=== PATIENT | male | born 1955 | race Caucasian/White ===

== ENCOUNTER → 2023-03-15 | Outpatient (CLI) | payer MEDICARE, BC, SELFPAY ==
[2023-03-15 16:56] LABS: PSA,Total - Annual Screen 4.14 ng/mL (0.00-4.00)
== END | disposition home or self-care (01) ==
PROVIDERS: PCP Family Medicine; Referring Provider Nurse Practitioner; Visit Provider Nurse Practitioner
DX: Z12.5 Encounter for screening for malignant neoplasm of prostate (principal)
CPT/HCPCS: 36415; 84153; G0103

== ENCOUNTER → 2023-09-06 | Outpatient (CLI) | payer MEDICARE, BC, SELFPAY ==
--- OUTSIDE RECORDS SUMMARY | 2023-09-06 10:03 | XMS RPT_ITS | CCD ---
Author Name Unknown Address [address] [facility] [address] [place] [address] Organization [facility] Care Team Providers Care Harp Maker Name Role Phone Shira Wade MD Primary Care Provider Shira Wade MD Unavailable KAMRYN WHITNEY Attending Unavailable CARMEN, SHIRA L Primary Care Unavailable CARMEN, SHIRA L Attending Unavailable CARMEN, SHIRA L Referring Unavailable CARMEN, SHIRA L Primary Care Unavailable CARMEN, SHIRA L Attending Unavailable CARMEN, SHIRA L Primary Care Unavailable CARMEN, SHIRA L Attending Unavailable CARMEN, SHIRA L Primary Care Unavailable ROBBY CARLOS Attending Unavailable CARMEN, SHIRA L Primary Care Unavailable CARMEN, SHIRA L Attending Unavailable CARMEN, SHIRA L Primary Care Unavailable CARMEN, SHIRA L Attending Unavailable CARMEN, SHIRA L Primary Care Unavailable CARMEN, SHIRA L Attending Unavailable CARMEN, SHIRA L Primary Care Unavailable Allergies Allergy Classification Reported Allergen(s) Allergy Type Date of Onset Reaction(s) Facility (8 sources) Losartan; Translations: [LOSARTAN] Drug Allergy 5 Dizziness, Headache [facility] (8 sources) Penicillins; Translations: [PENICILLINS] Propensity to adverse reactions 5 Hives, Rash [facility] Work Phone: Medications Current Medications Medication Drug Class(es) Dates Sig (Normalized) Sig (Original) celecoxib 100 mg oral capsule (5 sources) Nonsteroidal Anti-inflammatory Drug Start: 12-01-2022 take 1 capsule by mouth once daily celecoxib (CeleBREX) 100 mg capsule Take 1 capsule (100 mg) by mouth once daily. 0 12/01/2022 Active Completed/Discontinued Medications Medication Drug Class(es) Dates Sig (Normalized) Sig (Original) hydrOXYzine pamoate 25 mg oral capsule (3 sources) Antihistamine Start: 04-15-2023 End: 06-17-2023 take 1 capsule by mouth three times daily as needed for anxiety hydrOXYzine pamoate (VistariL) 25 mg capsule Indications: RUY (generalized anxiety disorder) Take 1 capsule (25 mg) by mouth 3 times a day as needed for itching or anxiety. 30 capsule 1 04/15/2023 06/17/2023 Discontinued (Med List Cleanup) 1 ml LORazepam 2 mg/ml injection (2 sources) Benzodiazepine Start: 06-03-2023 End: 06-03-2023 LORazepam (Ativan) injection 1 mg Problems Active Problems Problem Classification Problem Date Documented Date Episodic/Chronic Anxiety disorders (16 sources) Generalized anxiety disorder; Translations: [Generalized anxiety disorder] Onset: 0 10-13-2022 Chronic E Codes: Adverse effects of medical drugs (2 sources) Adverse effect of antihyperlipidemic and antiarteriosclerotic drugs, initial encounter; Translations: [Adverse effect of antihyperlipidemic and antiarteriosclerotic drugs, initial encounter] Onset: 4 Episodic Esophageal disorders (7 sources) Gastroesophageal reflux disease without esophagitis; Translations: [Gastro-esophageal reflux disease without esophagitis] Onset: 3 10-13-2022 Chronic Essential hypertension (14 sources) Essential hypertension; Translations: [Essential (primary) hypertension] Onset: 3 10-13-2022 Chronic Gout and other crystal arthropathies (7 sources) Gouty arthritis of left ankle; Translations: [Gout, unspecified] Onset: 8 04-15-2023 Chronic Other connective tissue disease (1 source) History of total knee arthroplasty; Translations: [Presence of right artificial knee joint] Onset: 1 06-17-2023 Chronic Other nervous system disorders (2 sources) Drug-induced myopathy; Translations: [Drug-induced myopathy] Onset: 4 Episodic Past or Other Problems Problem Classification Problem Date Documented Date Episodic/Chronic Other aftercare (7 sources) Patient encounter status; Translations: [Encounter for therapeutic drug level monitoring] Onset: 10-13-2022 10-13-2022 Episodic Other aftercare (2 sources) Encounter for therapeutic drug level monitoring; Translations: [Encounter for therapeutic drug level monitoring] Onset: 10-13-2022 Episodic Other screening for suspected conditions (not mental disorders or infectious disease) (3 sources) Raised prostate specific antigen; Translations: [Elevated prostate specific antigen [PSA]] Onset: 01-12-2023 01-12-2023 Episodic Residual codes; unclassified (1 source) History of radiofrequency ablation operation for arrhythmia; Translations: [Other specified postprocedural states] Onset: 11-22-2019 06-17-2023 Episodic Unclassified (6 sources) Onset: 10-13-2022 Resolved: 11-12-2022 10-13-2022 Results Test Name Value Interpretation Reference Range Facil ity Vital Signs Date Time Vital Sign Value Performing Clinician Facility 06-17-2023 13:27-0500 Body mass index (BMI) [Ratio] 27.97 kg/m2 Robby Carlos MD Work Phone: [facility] 06-17-2023 13:27-0500 Body weight 96.16 kg Robby Carlos MD Work Phone: [facility] 06-17-2023 13:27-0500 Diastolic blood pressure 84 mm[Hg] Robby Carlos MD Work Phone: [facility] 06-17-2023 13:27-0500 Heart rate 70 /min Robby Carlos MD Work Phone: [facility] 06-17-2023 13:27-0500 SaO2% (BldA) [Mass fraction] 97 % Robby Carlos MD Work Phone: [facility] 06-17-2023 13:27-0500 Systolic blood pressure 142 mm[Hg] Robby Carlos MD Work Phone: [facility] 06-03-2023 19:00-0500 Diastolic blood pressure 86 mm[Hg] Kamryn Whitney MD Work Phone: [facility] 06-03-2023 19:00-0500 Heart rate 51 /min Kamryn Whitney MD Work Phone: [facility] 06-03-2023 19:00-0500 Respiratory rate 16 /min Kamryn Whitney MD Work Phone: [facility] 06-03-2023 19:00-0500 SaO2% (BldA) [Mass fraction] 96 % Kamryn Whitney MD Work Phone: [facility] 06-03-2023 19:00-0500 Systolic blood pressure 141 mm[Hg] Kamryn Whitney MD Work Phone: [facility] 06-03-2023 16:56-0500 Body height 185.4 cm Kamryn Whitney MD Work Phone: [facility] 06-03-2023 16:56-0500 Body mass index (BMI) [Ratio] 27.71 kg/m2 Kamryn Whitney MD Work Phone: [facility] 06-03-2023 16:56-0500 Body temperature 98.1 [degF] Kamryn Whitney MD Work Phone: [facility] 06-03-2023 16:56-0500 Body weight 95.25 kg Kamryn Whitney MD Work Phone: [facility] 04-15-2023 11:01-0400 Body height 185.4 cm Shira Wade MD Work Phone: [facility] 04-15-2023 11:01-0400 Body mass index (BMI) [Ratio] 28.21 kg/m2 Shira Wade MD Work Phone: [facility] 04-15-2023 11:01-0400 Body weight 96.98 kg Shira Wade MD Work Phone: [facility] 04-15-2023 11:01-0400 Diastolic blood pressure 84 mm[Hg] Shira Wade MD Work Phone: [facility] 04-15-2023 11:01-0400 Heart rate 72 /min Shira Wade MD Work Phone: [facility] 04-15-2023 11:01-0400 SaO2% (BldA) [Mass fraction] 98 % Shira Wade MD Work Phone: [facility] 04-15-2023 11:01-0400 Systolic blood pressure 132 mm[Hg] Shira Wade MD Work Phone: [facility] 01-12-2023 10:51-0400 Body height 185.4 cm Shira Wade MD Work Phone: [facility] 01-12-2023 10:51-0400 Body mass index (BMI) [Ratio] 28.01 kg/m2 Shira Wade MD Work Phone: [facility] 01-12-2023 10:51-0400 Body weight 96.3 kg Shira Wade MD Work Phone: [facility] 01-12-2023 10:51-0400 Diastolic blood pressure 82 mm[Hg] Shira Wade MD Work Phone: [facility] 01-12-2023 10:51-0400 Heart rate 70 /min Shira Wade MD Work Phone: [facility] 01-12-2023 10:51-0400 SaO2% (BldA) [Mass fraction] 100 % Shira Wade MD Work Phone: [facility] 01-12-2023 10:51-0400 Systolic blood pressure 136 mm[Hg] Shira Wade MD Work Phone: [facility] 11-12-2022 09:46-0400 Body height 186.7 cm Shira Wade MD Work Phone: [facility] 11-12-2022 09:46-0400 Body mass index (BMI) [Ratio] 27.79 kg/m2 Shira Wade MD Work Phone: [facility] 11-12-2022 09:46-0400 Body weight 96.84 kg Shira Wade MD Work Phone: [facility] 11-12-2022 09:46-0400 Diastolic blood pressure 80 mm[Hg] Shira Wade MD Work Phone: [facility] 11-12-2022 09:46-0400 Heart rate 64 /min Shira Wade MD Work Phone: [facility] 11-12-2022 09:46-0400 Systolic blood pressure 140 mm[Hg] Shira Wade MD Work Phone: [facility] 10-13-2022 15:15-0400 Body height 186.7 cm Shira Wade MD Work Phone: [facility] 10-13-2022 15:15-0400 Body mass index (BMI) [Ratio] 26.94 kg/m2 Shira Wade MD Work Phone: [facility] 10-13-2022 15:15-0400 Body weight 93.89 kg Shiar Wade MD Work Phone: [facility] 10-13-2022 15:15-0400 Diastolic blood pressure 80 mm[Hg] Shira Wade MD Work Phone: [facility] 10-13-2022 15:15-0400 Heart rate 67 /min Shira Wade MD Work Phone: [facility] 10-13-2022 15:15-0400 SaO2% (BldA) [Mass fraction] 98 % Shira Wade MD Work Phone: [facility] 10-13-2022 15:15-0400 Systolic blood pressure 134 mm[Hg] Shira Wade MD Work Phone: [facility] Encounters Encounter Date Encounter Type Care Provider Facility Start: 07-15-2023 End: 07-15-2023 ambulatory SHIRA [facility] Ambulatory Start: 06-17-2023 End: 06-17-2023 ambulatory ROBBY Sullivan [facility] Ambulatory Start: 06-17-2023 End: 06-17-2023 Office outpatient visit 15 minutes Robby Carlos MD Work Phone: [facility] Procedures Date Procedure Procedure Detail Performing Clinician Start: 06-03-2023 DISCHARGE PATIENT KAMRYN WHITNEY Start: 06-03-2023 Basic metabolic 2000 panel - Serum or Plasma KAMRYN WHITNEY Start: 06-03-2023 CBC W Auto Different ial panel - Blood KAMRYN WHITNEY Start: 06-03-2023 ECG 12-LEAD KAMRYN LINPL E Start: 06-03-2023 INSERT PERIPHERAL IV CHARBEL AMINAH WHITNEY Start: 06-03-2023 TELEMETRY MONITORING CHARBEL WHITNEY Start: 06-03-2023 Basic metabolic pane l calcium total Kamryn Whitney MD Work Phone: Start: 01-12-2023 FOLLOW UP IN FAMILY MEDICINE SHIRA WADE Start: 10-13-2022 DRUG SCREEN, URINE W ITH REFLEX TO CONFIRMATION SHIRA WADE Start: 08-25-2022 HM COLONOSCOPY SHIRA WADE Start: 08-25-2022 Screening colonoscopy H istorical Provider Work Phone: Start: 08-25-2022 Colonoscopy Shira chahal MD Work Phone: Plan of Treatment Date Care Activity Detail Author Start: 08-25-2032 Screening for malignant neoplasm of colon [facility] Start: 11-14-2023 Medicare Annual Wellness Visit Medicare Annual Wellness Visit (AWV) [facility] Start: 07-15-2023 End: 07-15-2023 Patient encounter procedure 07/15/2023 11:20 AM EST Office Visit [facility] [address] [place] [id number] Shira Wade MD [address] [facility] [place] [address] [facility] Start: 07-06-2023 End: 04-15-2024 Basic metabolic 2000 panel - Serum or Plasma Basic Metabolic Panel Lab Routine Primary hypertension Expected: 07/06/2023, Expires: 04/15/2024 [facility] Work Phone: Immunizations Immunization Date Immunization Notes Care Provider Pat ribeiro 11-12-2022 Pneumococcal Conjuga te Pcv 20 Shira Wade MD Work Phone: [facility] Payers Date Payer Category Payer Unknown [id number] 2022 Unknown [id number] 2022 Medicare MEDICARE MEDICAR E PART A AND B [id number] 2022-Present [address] [place] [address] [id number] 2022 Medicare [id number] 1955 Unknown [id number] 3 1955 Unknown [id number] 4 1955 Unknown [id number] 4 1955 Unknown [id number] 4 1957 Unknown [id number] 4 1957 Unknown [id number] 4 1957 Unknown [id number] 4 1955 Unknown [id number] 4 Social History Date Type Detail Facility Start: 10-13-2022 Tobacco smoking stat us AKIS Never smoked tobacco [facility] Work Phone: Start: 10-13-2022 End: 01-12-2023 Tobacco use and exposure Former smokeless tobacco user [facility] Work Phone: End: 07-05-2011 History of tobacco use Chews Tobacco [facility] Work Phone: Start: 10-13-2022 End: 06-17-2023 Alcohol intake Current drinker of alcohol (finding) [facility] Work Phone: Start: 10-13-2022 End: 11-12-2022 Alcohol intake [facility] Work Phone: Start: 10-13-2022 End: 11-12-2022 Tobacco use panel [facility] Work Phone: Start: 1955 Sex Assigned At Not on file [facility] Work Phone: Start: 10-02-2022 End: 06-17-2023 Exposure to SARS-CoV-2 (event) Not sure [facility] Start: 01-12-2023 Tobacco smoking stat us NHIS Ex-smoker [facility] Work Phone: History of tobacco use Current smoker Uni [facility] Work Phone: Clinical Notes 10-13-2022 to 06-17-2023 Robby Carlos MD - 06/17/2023 1:30 PM ESTDischarge Julien Whitney MD - 06/03/2023 4:54 PM Lisandra Whitney MD - 06/03/2023 4:54 PM Wellington Wade MD - 04/15/2023 11:00 AM EDT Note Date & Type Note Facility 06-17-2023 History of Present illness Narrative Subjective Patient ID: Shira Alarcon is a 68 y.o. male who presents for evaluate (Both knees swollen, gout flare). HPI Having a flare of gout. Ankle on left and then left knee and now some in right knee. Has history of gout in these joints. He is to see whether to be on Allopurinol after lab work. Last flare up over a year. Having some pain in the kidneys.. In the past he just used RICE for a week. Did get some colchicine for a couple days. Does not like to take medications. No diabetes. History of TKR on right. No fever or chills. Knee red and warm but some better today. Ankle still sore. Father and brother with gout. Review of Systems Objective BP 142/84 (BP Location: Left arm, Patient Position: Sitting) Pulse 70 Wt 96.2 kg (212 lb) SpO2 97% BMI 27.97 kg/m Physical Exam Constitutional: Appearance: Normal appearance. Cardiovascular: Rate and Rhythm: Normal rate and regular rhythm. Pulses: Normal pulses. Pulmonary: Effort: Pulmonary effort is normal. Breath sounds: Normal breath sounds. Abdominal: General: Abdomen is flat. There is no distension. Palpations: Abdomen is soft. Tenderness: There is no abdominal tenderness. There is no guarding. Musculoskeletal: General: Swelling (both knee from TKR on right and a bit on left) and tenderness (Joint lines of left knee and left ankle) present. Comments: Thoracic spine very tight but no tenderness. Skin: General: Skin is warm and dry. Findings: No bruising or erythema. Neurological: Mental Status: He is alert. Psychiatric: Mood and Affect: Mood normal. Behavior: Behavior normal. Thought Content: Thought content normal. Judgment: Judgment normal. Assessment/Plan Diagnoses and all orders for this visit: Acute idiopathic gout of left knee - predniSONE (Deltasone) 20 mg tablet; Take 3 tabs (60mg) daily for 3 days, then take 2 tabs (40mg) daily for 3 days, then take 1 tab (20mg) daily for 3 days. Will try this to see if he gets a dramatic effect and if so may just use this as needed rather than daily allopurinol if Uric acid only moderately elevated The right flank pain seems to be musculoskeletal. The gout seems to be fading away now. So will observe for now. But will RX Prednisone to get if not continuing to improve. documented in this encounter [facility] Work Phone: 06-03-2023 Hospital Discharge instructions Kamryn Whitney MD - 06/03/2023 7:04 PM EST CONTINUE CURRENT MEDS DR WADE FOLLOW UP TOMORROW FOR EVAL OF BP documented in this encounter [facility] Work Phone: 06-03-2023 Emergency department Note Chief Complaint: HIGH BP This is a 68-year-old male who presents with hypertension. He has known hypertension which she takes lisinopril and metoprolol for. He has also been in the process of weaning down off from his benzodiazepines. This weaning process started in October and he was on Klonopin pin at that time. Subsequently his doctor switched him over to Valium and he is on Valium 6 mg nightly. He states he had a stressful vacation trip to take care of his father is 97 years old in [place] and feels that this might exacerbated conditions. His blood pressure is risen gradually from 150 up to 190 over the last several days. He denies any chest pains or palpitations no headache or dizziness no nausea vomiting no visual changes otherwise Review of Systems Constitutional: Negative for chills, fatigue and fever. HENT: Negative. Eyes: Negative for visual disturbance. Respiratory: Negative for chest tightness and shortness of breath. Cardiovascular: Negative for chest pain and leg swelling. Gastrointestinal: Negative for nausea and vomiting. Genitourinary: Negative for dysuria and hematuria. Musculoskeletal: Negative for arthralgias and back pain. Neurological: Negative for dizziness and headaches. Psychiatric/Behavioral: The patient is nervous/anxious. All other systems reviewed and are negative. Physical Exam Constitutional: General: He is not in acute distress. Appearance: Normal appearance. He is not toxic-appearing. HENT: Head: Normocephalic and atraumatic. Nose: Nose normal. Mouth/Throat: Mouth: Mucous membranes are dry. Pharynx: Oropharynx is clear. Eyes: Extraocular Movements: Extraocular movements intact. Conjunctiva/sclera: Conjunctivae normal. Pupils: Pupils are equal, round, and reactive to light. Cardiovascular: Rate and Rhythm: Normal rate. Pulses: Normal pulses. Heart sounds: No murmur heard. Pulmonary: Effort: Pulmonary effort is normal. Breath sounds: Normal breath sounds. Abdominal: General: Bowel sounds are normal. Palpations: Abdomen is soft. Tenderness: There is no abdominal tenderness. Musculoskeletal: General: No swelling or tenderness. Normal range of motion. Cervical back: Normal range of motion and neck supple. No rigidity. Skin: General: Skin is warm and dry. Capillary Refill: Capillary refill takes less than 2 seconds. Findings: No bruising or erythema. Neurological: General: No focal deficit present. Mental Status: He is alert and oriented to person, place, and time. Cranial Nerves: No cranial nerve deficit. Psychiatric: Mood and Affect: Mood normal. Comments: Seems somewhat anxious Labs Reviewed BASIC METABOLIC PANEL - Normal Result Value Glucose 87 Sodium 140 Potassium 4.2 Chloride 106 Bicarbonate 28 Anion Gap 10 Urea Nitrogen 17 Creatinine 0.94 eGFR 89 Calcium 9.1 CBC WITH AUTO DIFFERENTIAL WBC 6.6 nRBC 0.0 RBC 4.84 Hemoglobin 15.7 Hematocrit 45.9 MCV 95 MCH 32.4 MCHC 34.2 RDW 12.8 Platelets 160 Neutrophils % 67.0 Immature Granulocytes %, Automated 0.3 Lymphocytes % 22.8 Monocytes % 7.2 Eosinophils % 1.8 Basophils % 0.9 Neutrophils Absolute 4.44 Immature Granulocytes Absolute, Automated 0.02 Lymphocytes Absolute 1.51 Monocytes Absolute 0.48 Eosinophils Absolute 0.12 Basophils Absolute 0.06 No orders to display Procedures Medical Decision Making Differential diagnoses include benzodiazepine withdrawal essential hypertension electrolyte abnormalities renal insufficiency. After conversation with the patient and his it was decided this time routine labs and EKG will be ordered he received 1 mg Ativan to see if this helps his hypertension if it persist he will be given antihypertensive medications then. Patient received Ativan 1 mg IV and his blood pressure dropped by almost 50 points down to 147 systolic he said he felt markedly improved his CBC and cardiac enzymes were normal EKG was unremarkable also. Amount and/or Complexity of Data Reviewed ECG/medicine tests: independent interpretation performed. Details: Twelve-lead EKG showed sinus rhythm at 51/min but no acute ST segment elevation depressions or arrhythmias as interpreted by myself the emergency physician Diagnoses as of 06/03/231904 Uncontrolled hypertension Anxiety Kamryn Whitney MD 06/03/231904 documented in this encounter [facility] Work Phone: 06-03-2023 Physician Emergency department Note Chief Complaint: HIGH BP This is a 68-year-old male who presents with hypertension. He has known hypertension which she takes lisinopril and metoprolol for. He has also been in the process of weaning down off from his benzodiazepines. This weaning process started in October and he was on Klonopin pin at that time. Subsequently his doctor switched him over to Valium and he is on Valium 6 mg nightly. He states he had a stressful vacation trip to take care of his father is 97 years old in [place] and feels that this might exacerbated conditions. His blood pressure is risen gradually from 150 up to 190 over the last several days. He denies any chest pains or palpitations no headache or dizziness no nausea vomiting no visual changes otherwise Review of Systems Constitutional: Negative for chills, fatigue and fever. HENT: Negative. Eyes: Negative for visual disturbance. Respiratory: Negative for chest tightness and shortness of breath. Cardiovascular: Negative for chest pain and leg swelling. Gastrointestinal: Negative for nausea and vomiting. Genitourinary: Negative for dysuria and hematuria. Musculoskeletal: Negative for arthralgias and back pain. Neurological: Negative for dizziness and headaches. Psychiatric/Behavioral: The patient is nervous/anxious. All other systems reviewed and are negative. Physical Exam Constitutional: General: He is not in acute distress. Appearance: Normal appearance. He is not toxic-appearing. HENT: Head: Normocephalic and atraumatic. Nose: Nose normal. Mouth/Throat: Mouth: Mucous membranes are dry. Pharynx: Oropharynx is clear. Eyes: Extraocular Movements: Extraocular movements intact. Conjunctiva/sclera: Conjunctivae normal. Pupils: Pupils are equal, round, and reactive to light. Cardiovascular: Rate and Rhythm: Normal rate. Pulses: Normal pulses. Heart sounds: No murmur heard. Pulmonary: Effort: Pulmonary effort is normal. Breath sounds: Normal breath sounds. Abdominal: General: Bowel sounds are normal. Palpations: Abdomen is soft. Tenderness: There is no abdominal tenderness. Musculoskeletal: General: No swelling or tenderness. Normal range of motion. Cervical back: Normal range of motion and neck supple. No rigidity. Skin: General: Skin is warm and dry. Capillary Refill: Capillary refill takes less than 2 seconds. Findings: No bruising or erythema. Neurological: General: No focal deficit present. Mental Status: He is alert and oriented to person, place, and time. Cranial Nerves: No cranial nerve deficit. Psychiatric: Mood and Affect: Mood normal. Comments: Seems somewhat anxious Labs Reviewed BASIC METABOLIC PANEL - Normal Result Value Glucose 87 Sodium 140 Potassium 4.2 Chloride 106 Bicarbonate 28 Anion Gap 10 Urea Nitrogen 17 Creatinine 0.94 eGFR 89 Calcium 9.1 CBC WITH AUTO DIFFERENTIAL WBC 6.6 nRBC 0.0 RBC 4.84 Hemoglobin 15.7 Hematocrit 45.9 MCV 95 MCH 32.4 MCHC 34.2 RDW 12.8 Platelets 160 Neutrophils % 67.0 Immature Granulocytes %, Automated 0.3 Lymphocytes % 22.8 Monocytes % 7.2 Eosinophils % 1.8 Basophils % 0.9 Neutrophils Absolute 4.44 Immature Granulocytes Absolute, Automated 0.02 Lymphocytes Absolute 1.51 Monocytes Absolute 0.48 Eosinophils Absolute 0.12 Basophils Absolute 0.06 No orders to display Procedures Medical Decision Making Differential diagnoses include benzodiazepine withdrawal essential hypertension electrolyte abnormalities renal insufficiency. After conversation with the patient and his it was decided this time routine labs and EKG will be ordered he received 1 mg Ativan to see if this helps his hypertension if it persist he will be given antihypertensive medications then. Patient received Ativan 1 mg IV and his blood pressure dropped by almost 50 points down to 147 systolic he said he felt markedly improved his CBC and cardiac enzymes were normal EKG was unremarkable also. Amount and/or Complexity of Data Reviewed ECG/medicine tests: independent interpretation performed. Details: Twelve-lead EKG showed sinus rhythm at 51/min but no acute ST segment elevation depressions or arrhythmias as interpreted by myself the emergency physician Diagnoses as of 06/03/231904 Uncontrolled hypertension Anxiety Kamryn Whitney MD 06/03/231904 [facility] Work Phone: 04-15-2023 History of Present illness Narrative Subjective Patient ID: Shira Alarcon is a 68 y.o. male who presents for 3 month. HPI ,Consider starting allopurinol or probenecid. Discussed ASCVD risk. RUY/SAD Currently on 6 mg at bedtime Last reduction from 7.5 to 6 was noticeable More agitated during the day Sleeplessness and now walking up at night Anxious more Social anxiety Will keep at 6 mg for the next 90 days 05/11 to [place] will be in [place] with father Ruy 7 = 5 April 15, 2023 2 trips to [place] December 20 with mother Nephew at 40 yrs old [place] unexpected from ? [place] Ruy Raw emotionally Anxiety is peaking but feels numb S/p appy with her appendix Valium nightly OARRS reviewed Pt still is on board with weaning slowly and then go to prn hydroxyzine 7.5 6 5 then follow up 4 3 2 1 vs 321 over 6 weeks Ho gout Bph Has small chance of aggressive cancer Elevated psa 4.1 no change follow up every 6 months Jarad knee rtkr and left knee is schedule Right knee still has pain Sees ortho in [place] injection helps for a few months [facility] Review of Systems Objective BP 132/84 Pulse 72 Ht 1.854 m (6' 1 ) Wt 97 kg (213 lb 12.8 oz) SpO2 98% BMI 28.21 kg/m Physical Exam Constitutional: Appearance: Normal appearance. HENT: Head: Normocephalic and atraumatic. Lymphadenopathy: Cervical: No cervical adenopathy. Skin: Coloration: Skin is not jaundiced. Neurological: General: No focal deficit present. Mental Status: He is alert and oriented to person, place, and time. Psychiatric: Mood and Affect: Mood normal. Behavior: Behavior normal. Thought Content: Thought content normal. Judgment: Judgment normal. Assessment/Plan Diagnoses and all orders for this visit: RUY (generalized anxiety disorder) - hydrOXYzine pamoate (VistariL) 25 mg capsule; Take 1 capsule (25 mg) by mouth 3 times a day as needed for itching or anxiety. Primary hypertension - metoprolol succinate XL (Toprol-XL) 25 mg 24 hr tablet; Take 1 tablet (25 mg) by mouth once daily. - lisinopril 5 mg tablet; Take 1 tablet (5 mg) by mouth once daily. - Basic Metabolic Panel; Future - CBC; Future - Lipid Panel; Future Gout of left ankle, unspecified cause, unspecified chronicity - Uric acid; Future documented in this encounter [facility] Work Phone: 01-12-2023 History of Present illness Narrative Subjective Patient ID: Shira Alarcon is a 67 y.o. male who presents for 2 month f/u (Pt. Here for follow up for anxiety ). HPI RUY/SAD 2 trips to [place] December 20 with mother Nephew at 40 yrs old [place] unexpected from ? [place] Ruy Raw emotionally Anxiety is peaking but feels numb S/p appy with her appendix Valium nightly OARRS reviewed Pt still is on board with weaning slowly and then go to prn hydroxyzine 7.5 6 5 then follow up 4 3 2 1 vs 321 over 6 weeks Bph Has small chance of aggressive cancer Elevated psa Review of Systems Objective BP 136/82 Pulse 70 Ht 1.854 m (6' 1 ) Wt 96.3 kg (212 lb 4.8 oz) SpO2 100% BMI 28.01 kg/m Physical Exam Constitutional: Appearance: Normal appearance. HENT: Head: Normocephalic and atraumatic. Lymphadenopathy: Cervical: No cervical adenopathy. Skin: Coloration: Skin is not jaundiced. Neurological: General: No focal deficit present. Mental Status: He is alert and oriented to person, place, and time. Psychiatric: Mood and Affect: Mood normal. Behavior: Behavior normal. Thought Content: Thought content normal. Judgment: Judgment normal. Assessment/Plan Diagnoses and all orders for this visit: Elevated PSA - Referral to Urology; Future RUY (generalized anxiety disorder) - Follow Up In Primary Care - diazePAM (Valium) 5 mg tablet; Take 1.5 tablets (7.5 mg) by mouth as needed at bedtime for anxiety, sleep or muscle spasms. documented in this encounter [facility] Work Phone: 11-12-2022 History of Present illness Narrative Subjective Reason for Visit: Shira Alarcon is an 67 y.o. male here for a Medicare Wellness visit. Past Medical, Surgical, and Family History reviewed and updated in chart. Reviewed all medications by prescribing practitioner or clinical pharmacist (such as prescriptions, OTCs, herbal therapies and supplements) and documented in the medical record. HPI Awv P20 today Psa due in february Not recommend for AAA Ruy Jamia is currently in hospice and pt traveling to [place] this weekend Will not wean this month due to increased stress Changed klonopin to valium 10 mg Effexor states lethargic but stopped Dizziness gi issues and once stopping the effexor symptoms were better After 1 week on valium felt back to normal Fathering is also not doing well PSA done in May 2022 was little high Recommend rechecking in february Fxhx mother and uncle colon cancer Next one due aug 2025 No risk for AAA White coat HTN Patient Care Team: Shira Wade MD as PCP - General (Family Medicine) Review of Systems Objective Vitals: BP 140/80 Pulse 64 Ht 1.867 m (6' 1.5 ) Wt 96.8 kg (213 lb 8 oz) BMI 27.79 kg/m Physical Exam Constitutional: Appearance: Normal appearance. HENT: Head: Normocephalic and atraumatic. Eyes: Conjunctiva/sclera: Conjunctivae normal. Pupils: Pupils are equal, round, and reactive to light. Cardiovascular: Rate and Rhythm: Normal rate and regular rhythm. Heart sounds: Normal heart sounds. Pulmonary: Effort: Pulmonary effort is normal. Breath sounds: Normal breath sounds. Lymphadenopathy: Cervical: No cervical adenopathy. Skin: Coloration: Skin is not jaundiced. Neurological: General: No focal deficit present. Mental Status: He is alert and oriented to person, place, and time. Psychiatric: Mood and Affect: Mood normal. Behavior: Behavior normal. Thought Content: Thought content normal. Judgment: Judgment normal. Assessment/Plan Problem List Items Addressed This Visit Circulatory Primary hypertension Other RUY (generalized anxiety disorder) Relevant Medications diazePAM (Valium) 10 mg tablet Other Relevant Orders Follow Up In Primary Care Other Visit Diagnoses Routine general medical examination at health care facility - Primary documented in this encounter [facility] Work Phone: 10-13-2022 History of Present illness Narrative Subjective Patient ID: Shira Alarcon is a 67 y.o. male who presents for Med Management (Wants to wean off of Clonazepam). HPI Has seen Naturopathic doctor in [place] Right tkr and still hurts and left was schedule Will see jackson Trivedi next week Electrophysiology Had afib with ablation november 2020 GERD Prn omeprazole x14 days every 6 months Insomnia Takes unisom RUY On klonopin wants to wean off lorazepam 2009 to 2016 then changed to then longer acting klonopin 1 mg = 15 mg OARRS: Mother is currently dying. With lung cancer. 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 Shira Wade MD on 10/13/2022 3:40 PM I have personally reviewed the OARRS report for Shira Dorian. I have considered the risks of abuse, dependence, addiction and diversion Is the patient prescribed a combination of a benzodiazepine and opioid? No Last Urine Drug Screen / ordered today: Yes No results found for this or any previous visit (from the past 29756 hour(s)). N/A Controlled Substance Agreement: Date of the Last Agreement: October 13, 2022 Reviewed Controlled Substance Agreement including but not limited to the benefits, risks, and alternatives to treatment with a Controlled Substance medication(s). Benzodiazepines: What is the patient's goal of therapy? Treat ruy and wean off of benzo Is this being achieved with current treatment? yes RUY-7: Over the last 2 weeks, how often have you been bothered by any of the following problems? Feeling nervous, anxious, or on edge: 1 Not being able to stop or control worryin Worrying too much about different things: 0 Trouble relaxin Being so restless that it is hard to sit still: 2 Becoming easily annoyed or irritable: 1 Feeling afraid as if something awful might happen: 1 RUY-7 Total Score: 7 Activities of Daily Living: Is your overall impression that this patient is benefiting (symptom reduction outweighs side effects) from benzodiazepine therapy? Yes Review of Systems Cardiovascular: Negative for chest pain and palpitations. Objective BP 134/80 (BP Location: Left arm, Patient Position: Sitting) Pulse 67 Ht 1.867 m (6' 1.5 ) Wt 93.9 kg (207 lb) SpO2 98% BMI 26.94 kg/m Physical Exam Constitutional: Appearance: Normal appearance. HENT: Head: Normocephalic and atraumatic. Eyes: Conjunctiva/sclera: Conjunctivae normal. Pupils: Pupils are equal, round, and reactive to light. Cardiovascular: Rate and Rhythm: Normal rate and regular rhythm. Heart sounds: Normal heart sounds. Pulmonary: Effort: Pulmonary effort is normal. Breath sounds: Normal breath sounds. Lymphadenopathy: Cervical: No cervical adenopathy. Skin: Coloration: Skin is not jaundiced. Neurological: General: No focal deficit present. Mental Status: He is alert and oriented to person, place, and time. Psychiatric: Mood and Affect: Mood normal. Behavior: Behavior normal. Thought Content: Thought content normal. Judgment: Judgment normal. Assessment/Plan Problem List Items Addressed This Visit Circulatory Primary hypertension Relevant Medications lisinopril 5 mg tablet Digestive Gastroesophageal reflux disease without esophagitis Other RUY (generalized anxiety disorder) - Primary Relevant Medications venlafaxine XR (Effexor-XR) 37.5 mg 24 hr capsule diazePAM (Valium) 10 mg tablet Medication monitoring encounter Relevant Orders Drug Screen, Urine With Reflex to Confirmation documented in this encounter [facility] Work Phone: documented in this encounter [facility] Work Phone: Evaluation note* Diagnosis Routine general medical examination at health care facility- Primary Routine general medical examination at a health care facility RUY (generalized anxiety disorder) Generalized anxiety disorder Primary hypertension Unspecified essential hypertension documented in this encounter [facility] Work Phone: Evaluation note* Diagnosis Elevated PSA- Primary Elevated prostate specific antigen (PSA) RUY (generalized anxiety disorder) Generalized anxiety disorder documented in this encounter [facility] Work Phone: Evaluation note* Diagnosis RUY (generalized anxiety disorder)- Primary Generalized anxiety disorder Primary hypertension Unspecified essential hypertension Gout of left ankle, unspecified cause, unspecified chronicity documented in this encounter [facility] Work Phone: Evaluation note* Diagnosis Uncontrolled hypertension- Primary Anxiety Anxiety state, unspecified documented in this encounter [facility] Work Phone: Evaluation note* Diagnosis Acute idiopathic gout of left knee- Primary documented in this encounter [facility] Work Phone: Reason for referral (narrative)* Consultation (Routine) - Authorized Specialty Diagnoses / Procedures Referred By Contac t Referred To Contact Primary Care Diagnoses RUY (generalized anxiety disorder) Procedures Follow Up In Primary Care Shira Wade MD [address] [facility], [place] [address] [phone] Referral ID Status Reason Start Date Expiration Date V isits Requested Visits Authorized [id number] Authorized 11/12/2022 05/11/2023 1 1 [facility] Work Phone: Recndq for referral (narrative)* Consultation (Routine) - Authorized Specialty Diagnoses / Procedures Referred By Contac t Referred To Contact Urology Diagnoses Elevated PSA Procedures OR OFFICE/OUTPATIENT NEW HIGH MDM 60-74 MINUTES Shira Wade MD [address] [facility], [place] [address] [place] [id number] Mahamed Cline MD [address] [place] [address] [address] Referral ID Status Reason Start Date Expiration Date Visits Requested Visits Authorized [id number] Authorized Specialty Services Required 01/12/2023 07/11/2023 1 1 T [facility] Work Phone: Summary Purpose Family History No Family History Records FoundNo Family History Records Found Advance Directives No Advanced Directives Records FoundNo Advanced Directives Records Found Additional Source Comments Reason for Visit (unrecogniz ed section and content) Reason Comments Medicare Annual Wellness Visit Subsequen t 1 month follow up Reason Comments 2 month f/u Pt. Here for follow up for anxiety Specialty Diagnoses / Procedures Referred By Contac t Referred To Contact Primary Care Diagnoses RUY (generalized anxiety disorder) Procedures Follow Up In Primary Care Shira Wade MD [address] [facility], [place] [address] [place], [place] [phone] Referral ID Status Reason Start Date Expiration Date V isits Requested Visits Authorized [id number] Authorized 11/12/2022 05/11/2023 1 1 Reason Comments 3 month Reason Comments Hypertension Pt to ED with c/o hi gh blood pressure, pt has been running 150-160s for the last week, gradually increasing over the past two days and had at the highest over 200s systolic. Pt taking metoprolol and lisinopril. Pt reports anxiety and feeling chills. Pt on a program with Dr. Wade to help stop taking benzodiazepines, took a hydroxyzine today with no help in the anxiety or decrease in BP. Reason Comments evaluate Both knees swollen, gout flare Care Teams (unrecognized sec tion and content) Harp Maker Relationship Specialty Start Date End Date Shira Wade MD [address] [facility], [place] [address] [phone] PCP - General Family Medicine 09/15/22 Harp Maker Relationship Specialty Start Date End Date Shira Wade MD [address] [facility], [place] [address] [phone] PCP - General Family Medicine 09/15/22 Harp Maker Relationship Specialty Start Date End Date Shira Wade MD [address] [facility], [place] [address] [phone] PCP - General Family Medicine 09/15/22 Shira Wade MD [address] [facility], [place] [address] [phone] PCP - MSSP ACO Attributed Provider 10/03/22 Harp Maker Relationship Specialty Start Date End Date Shira Wade MD [address] [facility], [place] [address] [place] [address] PCP - General Family Medicine 09/15/22 Shira Wade MD [address] [facility], [place] [address] [place] [address] PCP - MSSP ACO Attributed Provider 10/03/22 Harp Maker Relationship Specialty Start Date End Date Shira Wade MD [address] [facility], [place] [address] [place] [address] PCP - General Family Medicine 09/15/22 Shira Wade MD [address] [facility], [facility] [address] [place] [address] PCP - MSSP ACO Attributed Provider 10/03/22 Scheduled Active and Recently Administ ered Medications (unrecognized section and content) (unrecognized sect ion and content) No Status Records FoundNo Status Records Found INFORMATION SOURCE (unrecogn ized section and content) DATE CREATED AUTHOR AUTHOR'S ORGANIZ ATALEJANDRO 07/18/2023 [facility] FOR RECORDS PERTAINING TO PATIENTS WHO ARE OR HAVE BEEN ENROLLED IN A CHEMICAL DEPENDENCY/SUBSTANCEABUSE PROGRAM, SOME INFORMATION MAY BE OMITTED. This clinical summary was aggregated from multiple sources. Caution should be exercised in using it in the provision of clinical care. This summary normalizes information from multiple sources, and as a consequence, information in this document may materially change the coding, format and clinical context of patient data. In addition, data may be omitted in some cases. CLINICAL DECISIONS SHOULD BE BASED ON THE PRIMARY CLINICAL RECORDS. [employer] provides no warranty or guarantee of the accuracy or completeness of information in this document.
== END | disposition home or self-care (01) ==
LOC: LAB 09:40
PROVIDERS: PCP Family Medicine; Visit Provider Nurse Practitioner
DX: R97.20 Elevated prostate specific antigen [PSA] (principal)
CPT/HCPCS: 36415; 84153